=== PATIENT | female | born 1975 | race Caucasian/White ===

== ENCOUNTER 2017-04-18 17:06 | Emergency (ER) | payer SELFPAY ==
[~2017-04-18] VITALS: Ht 165.1 cm; Wt 109.0 kg
[2017-04-18] MEDS ORDERED: TRAVATAN Z0.004 % OU (17:15)
[2017-04-18] MEDS ORDERED: ZOLOFT100 MG PO (17:16)
[2017-04-18] MEDS ORDERED: WELLBUTRIN SR150 MG PO (17:17)
[2017-04-18] MEDS ORDERED: SINGULAIR10 MG PO (17:17)
[2017-04-18] MEDS ORDERED: PROAIR HFA IN (17:18)
[2017-04-18 17:50] LABS: HEMATOCRIT 39.4 % (37.0-47.0); HEMOGLOBIN 13.2 g/dl (12.0-16.0); IMMATURE GRANULOCYTES 0.3 % (0.0-1.0); MEAN CELL VOLUME 86.2 fL CALC (80.0-100.0); MEAN CORPUSCULAR HGB 28.9 pG CALC (26.0-32.0); MEAN CORPUSCULAR HGB CONC 33.5 g/L CALC (32.0-36.0); NEUT# 10.57 thou/uL (2.00-7.15); RED BLOOD COUNT 4.57 mill/uL (4.20-5.60); RED CELL DISTRI WIDTH 12.6 % (11.5-15.5)
[2017-04-18 18:33] LABS: INFLUENZA A NONE DETECTED (NONE DETECT); INFLUENZA B NONE DETECTED (NONE DETECT)
[2017-04-18] MEDS ORDERED: ZPAK PO (18:53)
[2017-04-18] MEDS ORDERED: PREDNISONE50 MG PO (18:53)
[2017-04-18 19:00] LABS: ANION GAP 15 (6-22 (CALC)); BUN 10 mg/dL (7-17); BUN/CREATININE RATIO 17 (12-20 (CALC)); CALCIUM 9.4 mg/dL (8.4-10.2); CARBON DIOXIDE 27 mmol/l (22-30); CHLORIDE 104 mmol/l (95-108); CREATININE 0.6 mg/dL (0.5-1.0); GFR > 60 ML/MIN (>=60 (CALC)); GFR FOR AFR.AMER. > 60 ML/MIN (>=60 (CALC)); GLUCOSE 100 mg/dL (65-105); POTASSIUM 3.8 mmol/l (3.5-5.1); SODIUM 142 mmol/l (137-146)
[2017-04-18] MEDS ORDERED: VENTOLIN HFA IN (19:13)
[2017-04-18 19:24] VITALS: BP 158/77
== END 2017-04-18 19:27 | disposition home or self-care (01) | DRG 203 ==
LOC: ED 17:06
PROVIDERS: Family Medicine
DX: J45.901 Unspecified asthma with (acute) exacerbation (principal)

== ENCOUNTER 2022-10-05 07:31 | Day surgery (SDC) | payer SELFPAY ==
[~2022-10-05] VITALS: Ht 165.1 cm; Wt 111.6 kg
[~2022-10-05 07:31] MED LIST: ADDERALL20 MG PO; ATIVAN0.5 MG PO; B-12100 MCG PO; LISINOP/HCTZ1 TA2 PO; MAGNESIUM 250 M1 TAB; PREDNISONE50 MG PO; PROAIR HFA IN; SINGULAIR10 MG PO; SYMBICORT1 AE1 IN; TRAVATAN Z0.004 % IO; TRAVATAN Z0.004 % OU; TYLENOL500 MG PO; VENTOLIN HFA IN; VITAMIN D1000 UNIT PO; WELLBUTRIN SR150 MG PO; ZOLOFT100 MG PO; ZPAK PO
[2022-10-05 08:55] VITALS: BP 137/87
== END 2022-10-05 09:10 | disposition home or self-care (01) | DRG 392 ==
LOC: ENDO 07:31 → ORM 08:00 → ENDO 08:00
PROVIDERS: ATTEND Surgery
PROC: 0DBE8ZX Excision of Large Intestine, Via Natural or Artificial Opening Endoscopic, Diagnostic (ICD-10-PCS; principal; 2022-10-05)
DX: R19.7 Diarrhea, unspecified (principal); K64.8 Other hemorrhoids; F41.9 Anxiety disorder, unspecified; F32.A Depression, unspecified